=== PATIENT | female | born 2000 | race Caucasian/White ===

== ENCOUNTER 2022-02-20 04:19 | Emergency (ER) | payer BC, OTHER ==
[~2022-02-20] VITALS: Ht 160 cm; Wt 41.0 kg
[~2022-02-20 04:19] MED LIST: ACET-784; OTC EAR DROPS
[2022-02-20] MEDS ORDERED: BACITRACIN 0.9 GM PACKET OINTMENT TP ONE (05:00)
[2022-02-20] MEDS ORDERED: ACETAMINOPHEN 500 MG TABLET PO ONE (05:00)
[2022-02-20] MEDS ORDERED: ACET-66 PO (06:02)
[2022-02-20 07:15] VITALS: BP 132/84
== END 2022-02-20 07:52 | disposition home or self-care (01) ==
LOC: EMS 04:20
DX: S00.03XA Contusion of scalp, initial encounter (principal); S20.212A Contusion of left front wall of thorax, initial encounter; S00.531A Contusion of lip, initial encounter; S90.812A Abrasion, left foot, initial encounter; H11.33 Conjunctival hemorrhage, bilateral; J45.909 Unspecified asthma, uncomplicated; F12.90 Cannabis use, unspecified, uncomplicated; Z98.890 Other specified postprocedural states; Z88.8 Allergy status to other drugs, medicaments and biological substances; Y04.8XXA Assault by other bodily force, initial encounter; Y93.89 Activity, other specified; Y92.89 Other specified places as the place of occurrence of the external cause; Y99.8 Other external cause status
CPT/HCPCS: 70450; 71101; 99284